=== PATIENT | female | born 1995 | race Caucasian/White ===

== ENCOUNTER 2018-01-09 20:24 | Emergency (ER) | payer MEDICAID ==
[2018-01-09 20:39] VITALS: O2SAT 100
[2018-01-09] MEDS ORDERED: Sodium Chloride 0.9% 1,000 ML IV ONE (21:01)
--- NOTE | 2018-01-09 21:06 | C.PDOC ---
History Of Present Illness <Vito Still R - Last Filed: 01/10/18 00:47> <Galen Arce - Last Filed: 01/10/18 12:18> 22 year old female presents to ED complaining of epigastric abdominal pain that started 30 minutes ago. Patient also reports sharp left sided chest pain. Denies fever and offers no other complaints. (YazminGalen) <Vito Still - Last Filed: 01/10/18 00:47> History Per: Patient History/Exam Limitations: no limitations Onset/Duration Of Symptoms: Mins Current Symptoms Are (Timing): Still Present Quality: Sharp <Galen Arce - Last Filed: 01/10/18 12:18> Time Seen by Provider: 01/09/18 20:40 Chief Complaint (Nursing): Chest Pain Past Medical History Reviewed: Historical Data, Nursing Documentation, Vital Signs - Medical History PMH: Mitral Valve Prolapse Denies: Chronic Kidney Disease Surgical History: No Surg Hx, Tonsillectomy Family History: States: No Known Family Hx - Social History Hx Alcohol Use: No Hx Substance Use: No - Immunization History Hx Tetanus Toxoid Vaccination: No Hx Influenza Vaccination: No Hx Pneumococcal Vaccination: No <Galen Arce - Last Filed: 01/10/18 12:18> Vital Signs: Last Vital Signs Temp 97.4 F L 01/10/18 00:04 Pulse 81 01/10/18 00:04 Resp 16 01/10/18 00:04 BP 116/79 01/10/18 00:04 Pulse Ox 100 01/10/18 00:04 Review Of Systems Except As Marked, All Systems Reviewed And Found Negative. Constitutional: Negative for: Fever, Chills Cardiovascular: Positive for: Chest Pain (left sided) Gastrointestinal: Positive for: Abdominal Pain (epigastric) <Michelle Arceil - Last Filed: 01/10/18 12:18> Physical Exam - Physical Exam Appears: Non-toxic, No Acute Distress Skin: Warm, Dry Head: Atraumatic, Normacephalic Eye(s): bilateral: Normal Inspection, PERRL, EOMI Oral Mucosa: Moist Neck: Supple Chest: Symmetrical Cardiovascular: Rhythm Regular Respiratory: Normal Breath Sounds Gastrointestinal/Abdominal: Soft, Tenderness (epigastric tenderness), No Guarding, No Rebound Neurological/Psych: Oriented x3, Normal Speech, Normal Cognition Gait: Steady <Galen Arce - Last Filed: 01/10/18 12:18> ED Course And Treatment - Laboratory Results Result Diagrams: 01/09/18 21:25 01/09/18 21:25 Pulse Ox Interpretation: Normal - Radiology CXR: Interpreted by Me CXR Interpretation: Yes: No Acute Disease. No: Infiltrates <Vito Still R - Last Filed: 01/10/18 00:47> - Laboratory Results Result Diagrams: 01/09/18 21:25 01/09/18 21:25 ECG: Interpreted By Me, Viewed By Me ECG Rhythm: Sinus Rhythm (75) ECG Interpretation: No Acute Changes (No ST/T wave changes) Interpretation Of ECG: Perc negative. O2 Sat by Pulse Oximetry: 100 (RA) Pulse Ox Interpretation: Normal <Galen Arce - Last Filed: 01/10/18 12:18> Medical Decision Making <Vito Still R - Last Filed: 01/10/18 00:47> <Galen Arce - Last Filed: 01/10/18 12:18> Medical Decision Making: Plan: * EKG * Labs * Chest x-ray * IV fluids * Protonix * Zofran * Urinalysis (Galen Arce) Disposition Counseled Patient/Family Regarding: Diagnosis - Disposition Disposition Time: 00:47 - POA Present On Arrival: None <Vito Still R - Last Filed: 01/10/18 00:47> <Galen Arce - Last Filed: 01/10/18 12:18> - Disposition Referrals: [facility] [Outside] Disposition: HOME/ ROUTINE Condition: STABLE Prescriptions: Dicyclomine [Bentyl] 10 mg PO QID #14 cap Famotidine [Pepcid] 20 mg PO BID #20 tab Instructions: Gastritis, Ulcer and Gastritis Diet Forms: [facility] (Croatian) - Clinical Impression Clinical Impression: Gastritis, Abdominal pain <Vito Still R - Last Filed: 01/10/18 00:47> - Scribe Statement The provider has reviewed the documentation as recorded by the Scribe <Galen Arce - Last Filed: 01/10/18 12:18> - Scribe Statement Sahib Ren (Gaeln Arce) Provider Attestation: All medical record entries made by the Scribe were at my direction and personally dictated by me. I have reviewed the chart and agree that the record accurately reflects my personal performance of the history, physical exam, medical decision making, and the department course for this patient. I have also personally directed, reviewed, and agree with the discharge instructions and disposition. (Galen Arce)
[2018-01-09 21:28] LABS: BASO % 0.8 % (0.0-2.0); EOS # 0.1 K/uL (0.0-0.7); EOS % 1.5 % (0.0-4.0); HEMOGLOBIN 13.6 g/dL (11.0-16.0); LYMPH # 2.7 K/uL (1.0-4.3); LYMPH % 45.6 % (20.0-40.0); MEAN CELL VOLUME 82.4 fL (81.0-99.0); MEAN CORPUSCULAR HEMOGLOBIN 28.2 pg (27.0-31.0); MEAN CORPUSCULAR HGB CONC 34.2 g/dL (33.0-37.0); MEAN PLATELET VOLUME 8.8 fL (7.2-11.7); MONO # 0.4 K/uL (0.0-0.8); MONO % 6.4 % (0.0-10.0); NEUT # 2.7 K/uL (1.8-7.0); NEUT % 45.7 % (50.0-75.0); NRBC % 0.2 % (0.0-2.0); RBC 4.83 Mil/uL (3.80-5.20); RED CELL DISTRIBUTION WIDTH 13.1 % (11.5-14.5)
[2018-01-09 21:38] LABS: PROTHROMBIN TIME 11.3 SECONDS (9.7-12.2)
[2018-01-09 21:42] LABS: ALB/GLOB RATIO 1.5 (1.0-2.1); ALBUMIN 4.2 g/dL (3.5-5.0); ALT/SGPT 21 U/L (9-52); AST/SGOT 18 U/L (14-36); BILIRUBIN,DIRECT 0.3 mg/dL (0.0-0.4); BLOOD UREA NITROGEN 10 mg/dL (7-17); CALCIUM 9.5 mg/dl (8.6-10.4); GFR NON-AFRICAN AMERICAN > 60; LIPASE 167 U/L (23-300)
[2018-01-09 22:52] LABS: HCG,QUALITATIVE URINE NEGATIVE (NEGATIVE); SQUAMOUS EPITHIAL 6 /hpf (0-5); URINE BACTERIA RARE (<OCC); URINE BILIRUBIN NEGATIVE (NEGATIVE); URINE BLOOD NEGATIVE (NEGATIVE); URINE CLARITY Clear (Clear); URINE COLOR Yellow (YELLOW); URINE GLUCOSE (UA) NORMAL (Normal); URINE LEUKOCYTE ESTERASE NEG Leu/uL (Negative); URINE PROTEIN NEGATIVE (NEGATIVE); URINE UROBILINOGEN NORMAL mg/dL (0.2-1.0)
[2018-01-10 00:05] VITALS: BP 116/79; PULSE 81; RESP 16; TEMP 97.4
--- NOTE | 2018-01-10 09:06 | RAD ---
Date of service: 01/09/2018 HISTORY: chest pain COMPARISON: No prior. TECHNIQUE: Chest PA and lateral FINDINGS: LUNGS: No active pulmonary disease. PLEURA: No significant pleural effusion identified. No pneumothorax apparent. CARDIOVASCULAR: Normal. OSSEOUS STRUCTURES: There is mild levoscoliosis centered in the lower thoracic region. VISUALIZED UPPER ABDOMEN: Normal. OTHER FINDINGS: None. IMPRESSION: No active disease.
--- NOTE | 2018-01-10 12:48 | CT ---
Date of service: 01/09/2018 PROCEDURE: CT abdomen pelvis HISTORY: Left-sided abdominal pain. COMPARISON: None. TECHNIQUE: Contiguous axial images of the abdomen and pelvis performed following intravenous injection of contrast material. Additional 2D sagittal and coronal reformats generated. This CT exam was performed using one or more of the following dose reduction techniques: Automated exposure control, adjustment of the mA and/or kV according to patient size, and/or use of iterative reconstruction technique. Contrast dose: 100 cc Visipaque 320 Radiation dose: Total exam DLP = 241.72 mGy-cm. FINDINGS: LOWER THORAX: Lung bases clear. Small hiatal hernia. LIVER: Liver is enlarged measuring over 20 cm in CC dimension. . Mild fatty hepatic infiltration. No obvious hepatic masses or collections. Portal and splenic veins are opacified. GALLBLADDER AND BILE DUCTS: Gallbladder appears contracted with secondary wall thickening. No definitive evidence of intraluminal gallbladder calculi. Findings likely due to nonfasting state. Clinical correlation recommended to exclude cholecystitis. PANCREAS: Unremarkable. No mass. No ductal dilatation. SPLEEN: Unremarkable. No splenomegaly. ADRENALS: Unremarkable. KIDNEYS AND URETERS: Unremarkable. No stone or hydronephrosis. BLADDER: Mild urinary bladder wall thickening could be due to incomplete distention however correlation with urinalysis to exclude cystitis/ UTI. REPRODUCTIVE: Unremarkable. APPENDIX: Normal appendix of best seen on coronal sequence image number [id number] and axial sequence image [id number] BOWEL: Evaluation of the bowel is limited due to the lack of oral contrast material. Stomach is incompletely distended. Visualized loops of small bowel exhibit normal contour and caliber. No evidence acute mechanical small bowel obstruction. Stool and air seen throughout the large bowel. PERITONEUM: Small amount of free fluid seen in the pelvis. . No free air. Small fat containing umbilical hernia. LYMPH NODES: Unremarkable. No enlarged lymph nodes. VASCULATURE: Unremarkable. No aortic aneurysm. BONES: No fracture or destructive lesion. OTHER FINDINGS: None. IMPRESSION: Hepatomegaly with mild fatty hepatic infiltration. Gallbladder contracted with thick-walled appearance likely due to nonfasting state. No intraluminal gallbladder calculi however correlation recommended to exclude the possibility of a acute cholecystitis. Mild wall thickening of the urinary bladder likely due to incomplete distention. Correlation with urinalysis to exclude UTI/cystitis. Small amount of free fluid in the cul de sac.
== END 2018-01-10 01:12 | disposition home or self-care (01) ==
LOC: C.ER 20:24
DX: K29.70 Gastritis, unspecified, without bleeding (principal); R10.13 Epigastric pain
CPT/HCPCS: 71046; 74177; 80053; 81001; 82248; 83690; 84484; 84703; 85025; 85610; 85730; 96361; 96372; 96374; 96375; 99284; C9113; J0500; J2405; J7030